=== PATIENT | female | born 1935 | race Caucasian/White ===

== ENCOUNTER → 2016-10-30 | Outpatient (CLI) | payer MEDICARE ==
[~2016-10-30] MED LIST: Amiodarone Hcl PO; CHOL20002 PO; CYCL-259 PO; DILT120T4 PO; DILT240C9 PO; FLUC100T PO; FOLI-17 PO; FURO-93 PO; GLUC-165 PO; GUAI12003 PO; HYDR-3240 PO; HYDR12.53 PO; HYDR12.58 PO; IRON1TAB35 PO; IRON1TAB60 PO; LOSA1TAB16 PO; LOSA25TA5 PO; PANT40TA3 PO; POTA10TA11 PO; POTA20TA89 PO; PRED10TA PO; PRED5TAB PO; RANI300T3 PO; SUCR1ORA2 PO; SUCR1TAB26 PO; VIT1TABL32 PO; WARF3TAB PO; WARF5TAB PO
== END | disposition home or self-care (01) ==
LOC: CFH 09:27
PROVIDERS: ATTEND Internal Medicine Cardiovascular Disease
DX: I08.3 Combined rheumatic disorders of mitral, aortic and tricuspid valves (principal); I31.3 Pericardial effusion (noninflammatory); I10 Essential (primary) hypertension
CPT/HCPCS: 93306

== ENCOUNTER → 2017-01-01 | Outpatient (CLI) | payer MEDICARE | END | disposition home or self-care (01) | LOC: RAD 07:54 | PROVIDERS: ATTEND Internal Medicine Gastroenterology | DX: K44.9 Diaphragmatic hernia without obstruction or gangrene (principal); K21.9 Gastro-esophageal reflux disease without esophagitis; K25.0 Acute gastric ulcer with hemorrhage; R63.4 Abnormal weight loss; K22.8 Other specified diseases of esophagus; K57.10 Diverticulosis of small intestine without perforation or abscess without bleeding; K31.89 Other diseases of stomach and duodenum; Z79.01 Long term (current) use of anticoagulants | CPT/HCPCS: 74241 ==

== ENCOUNTER 2017-08-26 15:45 | Inpatient (IN) | payer MEDICARE ==
[~2017-08-26] VITALS: Ht 149.9 cm; Wt 68.3 kg
[~2017-08-26 15:45] MED LIST changes: +IRON1TAB PO; -IRON1TAB35 PO; -LOSA1TAB16 PO; +LOSA1TAB19 PO; -SUCR1ORA2 PO; +SUCR1ORA5 PO; -SUCR1TAB26 PO; +SUCR1TAB33 PO
[2017-08-26] MEDS ORDERED: SODIUM CHLORIDE 0.9% 1,000 ML IV ONE ×2 (15:57→18:13)
[2017-08-26] MEDS ORDERED: SODIUM CHLORIDE FLUSH 10ML SYR IVF ONE (16:00)
[2017-08-26] MEDS ORDERED: ONDANSETRON 2MG/ML, 2ML IVPush ONE (16:00)
[2017-08-26] MEDS ORDERED: PLEASE ENTER HEIGHT AND WEIGHT MC SCH (16:30)
[2017-08-26] MEDS ORDERED: MORPHINE SULFATE 4 MG/ML, 1ML ONE ×2 (16:30→18:15)
[2017-08-26] MEDS ORDERED: ONDANSETRON 2MG/ML, 2ML ONE (16:30)
[2017-08-26] MEDS: MORPHINE SULFATE 4 MG/ML, 1ML IVPush PRN ×2 (16:42→18:20)
[2017-08-26 17:29] LABS: BASOPHILS # (AUTO) 0.05 x10^3/uL (0-0.1); BASOPHILS % (AUTO) 1 % (0-1); EOSINOPHILS # (AUTO) 0.04 x10^3/uL (0-0.4); EOSINOPHILS % (AUTO) 0 % (1-7); LYMPHOCYTES # (AUTO) 1.04 x10^3/uL (1-3.4); LYMPHOCYTES % (AUTO) 10 % (22-44); MD NO; MEAN CORPUSCULAR HEMOGLOBIN 31.4 pg (27.0-34.8); MEAN CORPUSCULAR HGB CONC 33.4 g/dL (32.4-35.8); MEAN CORPUSCULAR VOLUME 93.9 fL (80-100); MEAN PLATELET VOLUME 9.1 fL (7.4-10.4); MONOCYTES # (AUTO) 0.53 x10^3/uL (0.2-0.8); MONOCYTES % (AUTO) 5 % (2-9); NEUTROPHILS # (AUTO) 8.71 x10^3/uL (1.8-6.8); NEUTROPHILS % (AUTO) 84 % (42-75); PLATELET COUNT 179 x10^3/uL (130-400); RED BLOOD COUNT 4.78 x10^6/uL (3.82-5.3); RED CELL DISTRIBUTION WIDTH 14.1 % (9.6-15.2)
[2017-08-26 17:36] LABS: ALBUMIN 3.7 g/dL (3.4-5.0); ANION GAP 8 mmol/L (5-15); CALCIUM 8.7 mg/dL (8.5-10.1); CHLORIDE 110 mmol/L (98-107); CREATININE 0.82 mg/dL (0.55-1.02)
[2017-08-26 17:42] LABS: INTERNATIONAL NORMALIZED RATIO 2.24 (0.93-1.1); PROTHROMBIN TIME 22.9 Seconds (9.6-11.5)
[2017-08-26] MEDS ORDERED: TERI2.4P SQ (17:57)
[2017-08-26] MEDS ORDERED: WARF2.5T PO (17:57)
[2017-08-26] MEDS ORDERED: WARF5TAB PO (17:57)
[2017-08-26] MEDS ORDERED: DILT240C PO (17:57)
[2017-08-26] MEDS ORDERED: ONDANSETRON 2MG/ML, 2ML IVPush PRN ×2 (18:30→21:30)
[2017-08-26] MEDS ORDERED: MORPHINE SULFATE 4 MG/ML, 1ML IVPush PRN (18:30)
[2017-08-26] MEDS ORDERED: SODIUM CHLORIDE FLUSH 10ML SYR IVF PRN (18:30)
[2017-08-26 20:02] VITALS: BP 136/57
[2017-08-26] MEDS ORDERED: ACETAMINOPHEN 325 MG TABLET PO PRN (21:30)
[2017-08-26] MEDS ORDERED: hydrALAzine 20 MG/ML, 1ML IVPush PRN (21:30)
[2017-08-26] MEDS ORDERED: morphine SULFATE 10 MG/ML, 1ML IVPush PRN (21:30)
[2017-08-26] MEDS: SODIUM CHLORIDE 0.9% 1,000 ML IV SCH (22:18)
[2017-08-27 03:04] VITALS: BP 111/65
[2017-08-27 05:05] LABS: BASOPHILS # (AUTO) 0.03 x10^3/uL (0-0.1); BASOPHILS % (AUTO) 0 % (0-1); EOSINOPHILS # (AUTO) 0.13 x10^3/uL (0-0.4); EOSINOPHILS % (AUTO) 2 % (1-7); LYMPHOCYTES # (AUTO) 1.12 x10^3/uL (1-3.4); LYMPHOCYTES % (AUTO) 18 % (22-44); MD NO; MEAN CORPUSCULAR HEMOGLOBIN 31.2 pg (27.0-34.8); MEAN CORPUSCULAR HGB CONC 33.4 g/dL (32.4-35.8); MEAN CORPUSCULAR VOLUME 93.4 fL (80-100); MONOCYTES # (AUTO) 0.63 x10^3/uL (0.2-0.8); MONOCYTES % (AUTO) 10 % (2-9); NEUTROPHILS # (AUTO) 4.37 x10^3/uL (1.8-6.8); NEUTROPHILS % (AUTO) 70 % (42-75); PLATELET COUNT 160 x10^3/uL (130-400); RED BLOOD COUNT 3.87 x10^6/uL (3.82-5.3); RED CELL DISTRIBUTION WIDTH 14.1 % (9.6-15.2)
[2017-08-27 05:09] LABS: INTERNATIONAL NORMALIZED RATIO 2.2 (0.93-1.1); PROTHROMBIN TIME 22.3 Seconds (9.6-11.5)
[2017-08-27] MEDS: SODIUM CHLORIDE 0.9% 1,000 ML IV SCH (06:24)
[2017-08-27] MEDS: POLYETHYLENE GLYCOL 17 GM PACKET PO SCH (08:27)
[2017-08-27] MEDS: CYCLOBENZAPRINE 10 MG TABLET PO SCH (08:28)
[2017-08-27] MEDS: CHOLECALCIFEROL 1,000 UNIT TABLET PO SCH (08:28)
[2017-08-27] MEDS: DILTIAZEM 240 MG CAP.ER.24H PO SCH (08:28)
[2017-08-27] MEDS: FOLIC ACID 1 MG TABLET PO SCH (08:28)
[2017-08-27] MEDS: FUROSEMIDE 40 MG TABLET PO SCH (08:28)
[2017-08-27] MEDS: LOSARTAN 50MG TABLET PO SCH (08:28)
[2017-08-27] MEDS: HYDROcodone/APAP 5/325 TABLET PO PRN ×2 (08:28→19:38)
[2017-08-27] MEDS: POTASSIUM CHLORIDE 20 MEQ TAB.ER.PRT PO SCH (08:28)
[2017-08-27] MEDS: MULTIVITAMINS/MINERALS TABLET PO SCH (08:28)
[2017-08-27] MEDS: PANTOPROZOLE 40MG TABLET PO SCH ×2 (08:34→17:49)
[2017-08-27] MEDS ORDERED: D3 PO SCH (09:00)
[2017-08-27] MEDS ORDERED: BOSWELLIA SERRA PO SCH (09:00)
[2017-08-27] MEDS ORDERED: GLUCOSAMINE PO SCH (09:00)
[2017-08-27] MEDS ORDERED: [UNRECOGNIZED DRUG - OTHER] PO SCH (09:00)
[2017-08-27 13:45] VITALS: BP 150/72
[2017-08-27] MEDS ORDERED: WARFARIN 2.5 MG TABLET PO-COUM ONE (18:00)
[2017-08-27 18:42] VITALS: BP 154/79
[2017-08-28 01:01] VITALS: BP 116/68
[2017-08-28] MEDS: HYDROcodone/APAP 5/325 TABLET PO PRN ×4 (04:51→20:21)
[2017-08-28 04:59] LABS: INTERNATIONAL NORMALIZED RATIO 2.23 (0.93-1.1); PROTHROMBIN TIME 22.6 Seconds (9.6-11.5)
[2017-08-28 06:40] VITALS: BP 112/64
[2017-08-28] MEDS: PANTOPROZOLE 40MG TABLET PO SCH ×2 (07:44→17:07)
[2017-08-28] MEDS: FUROSEMIDE 40 MG TABLET PO SCH (09:00)
[2017-08-28] MEDS: LOSARTAN 50MG TABLET PO SCH (09:21)
[2017-08-28] MEDS: FOLIC ACID 1 MG TABLET PO SCH (09:21)
[2017-08-28] MEDS: POTASSIUM CHLORIDE 20 MEQ TAB.ER.PRT PO SCH (09:21)
[2017-08-28] MEDS: CHOLECALCIFEROL 1,000 UNIT TABLET PO SCH (09:21)
[2017-08-28] MEDS: MULTIVITAMINS/MINERALS TABLET PO SCH (09:21)
[2017-08-28] MEDS: DILTIAZEM 240 MG CAP.ER.24H PO SCH (09:21)
[2017-08-28] MEDS: CYCLOBENZAPRINE 10 MG TABLET PO SCH (09:21)
[2017-08-28] MEDS: POLYETHYLENE GLYCOL 17 GM PACKET PO SCH (09:22)
[2017-08-28 12:20] VITALS: BP 148/68
[2017-08-28] MEDS ORDERED: WARFARIN 3 MG TABLET PO-COUM ONE (18:00)
[2017-08-28 19:34] VITALS: BP 94/54
[2017-08-29 01:08] VITALS: BP 103/55
[2017-08-29] MEDS: HYDROcodone/APAP 5/325 TABLET PO PRN ×3 (03:58→14:28)
[2017-08-29 05:05] LABS: INTERNATIONAL NORMALIZED RATIO 1.9 (0.93-1.1); PROTHROMBIN TIME 19.3 Seconds (9.6-11.5)
[2017-08-29 06:39] VITALS: BP 103/62
[2017-08-29] MEDS: PANTOPROZOLE 40MG TABLET PO SCH (07:49)
[2017-08-29] MEDS: POLYETHYLENE GLYCOL 17 GM PACKET PO SCH (08:52)
[2017-08-29] MEDS: DILTIAZEM 240 MG CAP.ER.24H PO SCH (08:52)
[2017-08-29] MEDS: LOSARTAN 50MG TABLET PO SCH (08:53)
[2017-08-29] MEDS: MULTIVITAMINS/MINERALS TABLET PO SCH (08:53)
[2017-08-29] MEDS: CHOLECALCIFEROL 1,000 UNIT TABLET PO SCH (08:53)
[2017-08-29] MEDS: FUROSEMIDE 40 MG TABLET PO SCH (08:53)
[2017-08-29] MEDS: CYCLOBENZAPRINE 10 MG TABLET PO SCH (08:53)
[2017-08-29] MEDS: FOLIC ACID 1 MG TABLET PO SCH (08:53)
[2017-08-29] MEDS: POTASSIUM CHLORIDE 20 MEQ TAB.ER.PRT PO SCH (08:53)
[2017-08-29] MEDS ORDERED: ACET650S21 PO (09:49)
[2017-08-29] MEDS ORDERED: POLY17PO5 PO (09:49)
[2017-08-29] MEDS ORDERED: CYCL-259 PO (09:49)
[2017-08-29 13:24] VITALS: BP 107/62
[2017-08-29] MEDS ORDERED: WARFARIN 2 MG TABLET PO-COUM ONE (18:00)
== END 2017-08-29 15:38 | disposition home or self-care (01) | DRG 605 ==
LOC: ED 17:30 → EDIP 18:13 → 3NW 19:56
PROVIDERS: ADMIT Hospitalist; ATTEND Hospitalist
DX: S20.219A Contusion of unspecified front wall of thorax, initial encounter (principal); S32.512A Fracture of superior rim of left pubis, initial encounter for closed fracture; D68.69 Other thrombophilia; I50.9 Heart failure, unspecified; I11.0 Hypertensive heart disease with heart failure; I48.2 Chronic atrial fibrillation; W18.39XA Other fall on same level, initial encounter; E11.9 Type 2 diabetes mellitus without complications; Z79.01 Long term (current) use of anticoagulants; Z85.3 Personal history of malignant neoplasm of breast; Z90.10 Acquired absence of unspecified breast and nipple; Z95.2 Presence of prosthetic heart valve; Y93.89 Activity, other specified; Y92.89 Other specified places as the place of occurrence of the external cause; Z79.899 Other long term (current) drug therapy
CPT/HCPCS: 36415; 71250; 80048; 82040; 85025; 85610; 93005; 96361; 96374; 96375; 96376; J2405; J2270; J7030

== ENCOUNTER → 2018-09-28 | Outpatient (CLI) | payer MEDICARE ==
[~2018-09-28] MED LIST changes: +ACET650S21 PO; +DILT240C PO; +HYDR12.517 PO; -HYDR12.53 PO; -HYDR12.58 PO; +HYDROCHLOROTH12.5 MG PO; +LOSA25TA25 PO; -LOSA25TA5 PO; +POLY17PO5 PO; +TERI2.4P SQ; +WARF2.5T PO
== END | disposition home or self-care (01) ==
LOC: CFH 14:06
PROVIDERS: ATTEND Internal Medicine Cardiovascular Disease
DX: I08.1 Rheumatic disorders of both mitral and tricuspid valves (principal); I25.2 Old myocardial infarction; I11.0 Hypertensive heart disease with heart failure; Z85.3 Personal history of malignant neoplasm of breast; Z95.2 Presence of prosthetic heart valve
CPT/HCPCS: 93306

== ENCOUNTER 2019-02-18 13:58 | Outpatient (CLI) | payer MEDICARE | END 2019-02-18 23:59 | disposition home or self-care (01) | LOC: CFH 13:58 | PROVIDERS: ATTEND Internal Medicine Cardiovascular Disease | DX: I08.1 Rheumatic disorders of both mitral and tricuspid valves (principal); I10 Essential (primary) hypertension; I25.2 Old myocardial infarction; Z95.2 Presence of prosthetic heart valve | CPT/HCPCS: 93306 ==

== ENCOUNTER 2021-01-15 08:01 | Outpatient (CLI) | payer MEDICARE ==
[~2021-01-15 08:01] MED LIST changes: -CYCL-259 PO; +CYCL10TA2 PO; +DILT-88 PO; -DILT240C PO; +DILT240C81 PO; -DILT240C9 PO; -FOLI-17 PO; +FOLI1TAB32 PO; +HYDR-2214 PO; -HYDR-3240 PO; +REGADENOSON 0.4 MG/5 ML SYRINGE ONE; -WARF2.5T PO; +WARF2.5T2 PO; -WARF5TAB PO; +WARF5TAB2 PO
[2021-02-10] MEDS ORDERED: METO25TA91 PO (18:06)
[2021-02-12] MEDS ORDERED: SUCR1ORA5 PO (12:19)
== END 2021-01-15 23:59 | disposition home or self-care (01) ==
LOC: CFH 08:01
PROVIDERS: ATTEND Internal Medicine Cardiovascular Disease
DX: I48.0 Paroxysmal atrial fibrillation (principal); R06.00 Dyspnea, unspecified
CPT/HCPCS: 78452; 93017; A9502; J2785

== ENCOUNTER → 2021-01-21 | Outpatient (CLI) | payer MEDICARE ==
[~2021-01-21] MED LIST changes: -REGADENOSON 0.4 MG/5 ML SYRINGE ONE
== END | disposition home or self-care (01) ==
LOC: CVU 07:43
PROVIDERS: ATTEND Internal Medicine Cardiovascular Disease
DX: I08.8 Other rheumatic multiple valve diseases (principal); I11.9 Hypertensive heart disease without heart failure; I25.2 Old myocardial infarction; Z95.2 Presence of prosthetic heart valve
CPT/HCPCS: 93306

== ENCOUNTER 2021-02-17 14:17 | Emergency (ER) | payer MEDICARE ==
[~2021-02-17] VITALS: Ht 151.1 cm; Wt 63.0 kg
[~2021-02-17 14:17] MED LIST changes: +METO25TA91 PO
[2021-02-17] MEDS ORDERED: SPIR25TA5 PO (14:28)
[2021-02-17] MEDS ORDERED: POTA20PA25 PO (14:28)
[2021-02-17] MEDS ORDERED: ESCI20TA8 PO (14:33)
[2021-02-17] MEDS ORDERED: FURO20TA3 PO (14:33)
[2021-02-17] MEDS ORDERED: METH-639 PO (14:33)
[2021-02-17] MEDS ORDERED: LEVO50TA5 PO (14:33)
[2021-02-17] MEDS ORDERED: SODIUM CHLORIDE FLUSH 10ML SYR IVF ONE (15:00)
[2021-02-17 15:03] LABS: BASOPHILS % (AUTO) 1 % (0-1); EOSINOPHILS % (AUTO) 1 % (1-7); LYMPHOCYTES % (AUTO) 18 % (22-44); MEAN CORPUSCULAR HEMOGLOBIN 31.3 pg (27.0-34.8); MEAN CORPUSCULAR HGB CONC 33.4 g/dL (32.4-35.8); MONOCYTES % (AUTO) 10 % (2-9); NEUTROPHILS % (AUTO) 71 % (42-75); PLATELET COUNT 236 x10^3/uL (130-400); RED BLOOD COUNT 4.48 x10^6/uL (3.82-5.3); RED CELL DISTRIBUTION WIDTH 13.4 % (9.6-15.2)
[2021-02-17 15:13] LABS: INTERNATIONAL NORMALIZED RATIO 1.54 (0.93-1.1); PROTHROMBIN TIME 16.1 Seconds (9.6-11.5)
[2021-02-17 15:14] LABS: ALBUMIN 3.2 g/dL (3.4-5.0); ANION GAP 5 mmol/L (5-15); CALCIUM 8.8 mg/dL (8.5-10.1); CHLORIDE 105 mmol/L (98-107); CREATININE 0.73 mg/dL (0.55-1.02)
[2021-02-17 15:18] LABS: TROPONIN I < 0.015 ng/mL (0.000-0.045)
[2021-02-17] MEDS ORDERED: FUROSEMIDE 20 MG/2 ML IV ONE (16:00)
[2021-02-17 16:34] VITALS: BP 124/74
== END 2021-02-17 16:40 | disposition home or self-care (01) ==
LOC: ED 16:39
DX: I11.0 Hypertensive heart disease with heart failure (principal); I50.9 Heart failure, unspecified; I48.91 Unspecified atrial fibrillation; E11.9 Type 2 diabetes mellitus without complications
CPT/HCPCS: 36415; 71045; 80048; 82040; 83880; 84484; 85025; 85610; 93005; 99285